=== PATIENT | female | born 1975 | race Caucasian/White ===

== ENCOUNTER 2019-08-31 21:28 | Emergency (ER) | payer SELFPAY ==
[2019-08-31] MEDS ORDERED: Sodium Chloride 0.9% 2.5 ML Syringe FLUSH PRN (22:24)
[2019-08-31] MEDS ORDERED: DEXTROSE 5% IV ONE ×2 (22:24)
[2019-08-31] MEDS ORDERED: VANCOMYCIN IV ONE ×2 (22:24)
[2019-08-31] MEDS ORDERED: WATER IV ONE ×2 (22:24)
[2019-08-31] MEDS ORDERED: Sodium Chloride 0.9% 1,000 ML IV ONE (22:24)
[2019-08-31] MEDS ORDERED: Sodium Chloride 0.9% 10 ML Syringe FLUSH PRN (22:24)
[2019-08-31] MEDS ORDERED: ceFAZolin 1 GM in Premix Bag 1 BAG IV ONE (22:26)
[2019-08-31 22:58] LABS: BLOOD UREA NITROGEN,BUN 7 mg/dL (7.0-18.0); CARBON DIOXIDE,CO2 25.5 mmol/L (21.0-32.0); CHLORIDE,CL 103 mmol/L (98-107); GLUCOSE RANDOM 108 mg/dL (74-106); POTASSIUM,K 3.6 mmol/L (3.5-5.1); SODIUM,NA 138 mmol/L (136-145)
--- NOTE | 2019-08-31 23:04 | CR ---
Indication: Cat bite, septic, eval for foreign body Technique: Three views of the left wrist Comparison: None Findings: There is no fracture or dislocation. There is no radiopaque foreign body. Advanced degenerative changes are noted at the intercarpal and radiocarpal joints. Impression: No radiopaque foreign body. Dictated by Leena Bustos MD @ Aug 31 2019 11:01PM Signed by Dr. Leena Bustos @ Aug 31 2019 11:04PM
[2019-08-31] MEDS ORDERED: Vancomycin 1 GM SDV ONE (23:11)
[2019-08-31] MEDS ORDERED: Vancomycin 1 GM AdvVial ONE (23:12)
--- NOTE | 2019-08-31 23:56 | EDM.PDOC ---
ED HPI GENERAL MEDICAL PROBLEM - General Chief Complaint: Bite:Animal, Insect Stated Complaint: INFECTION FROM CAT BITE Time Seen by Provider: 08/31/19 21:31 Source of Information: Reports: Patient History Limitations: Reports: No Limitations - History of Present Illness INITIAL COMMENTS - FREE TEXT/NARRATIVE: This patient is a 44-year-old female with a past medical history of rheumatoid arthritis (on Tocilizumab) presenting with an animal bite. Yesterday evening, she was bit on her left hand by her pet cat. Since then, she is experienced worsening pain, erythema, and swelling to the left hand and streaking up the left arm. No self treatment prior to arrival, no other complaints. left hand Pain Score (Numeric/FACES): 6 - Related Data Allergies Allergy/AdvReac Type Severity Reaction Status Date / Time No Known Allergies Allergy Verified 08/31/19 21:36 Home Meds: Home Meds Tocilizumab [Actemra] 162 mg SQ WEEKLY 08/31/19 [History] Past Medical History Musculoskeletal History: Reports: RA Social & Family History - Family History Family Medical History: Noncontributory - Tobacco Use Smoking Status *Q: Never Smoker - Caffeine Use Caffeine Use: Reports: Coffee - Recreational Drug Use Recreational Drug Use: No ED ROS GENERAL - Review of Systems Review Of Systems: See Below Constitutional: Denies: Fever, Chills HEENT: Reports: No Symptoms Respiratory: Reports: No Symptoms. Denies: Shortness of Breath Cardiovascular: Reports: No Symptoms. Denies: Chest Pain Endocrine: Reports: No Symptoms GI/Abdominal: Reports: No Symptoms. Denies: Nausea, Vomiting : Reports: No Symptoms Musculoskeletal: Reports: No Symptoms. Denies: Back Pain Skin: Reports: No Symptoms, Wound. Denies: Rash Neurological: Reports: No Symptoms. Denies: Headache Psychiatric: Reports: No Symptoms Hematologic/Lymphatic: Reports: No Symptoms Immunologic: Reports: No Symptoms ED EXAM, ANIMAL BITE - Physical Exam Exam: See Below Text/Narrative:: Vital signs reviewed. Nursing notes reviewed. Constitutional: Awake, alert, non-distressed Head: Normocephalic, atraumatic Eyes: EOMI, conjunctiva normal, no discharge, no scleral icterus Ears, Nose, Throat: External ears and ears normal, moist oral mucosa Cardiovascular: Tachycardic, 2+ radial pulse, capillary refill less than 2 seconds Pulmonary: normal work of breathing, no accessory muscle use Abdomen/GI: Soft, nontender, nondistended, no guarding or rigidity, no masses Musculoskeletal: No deformities Integumentary: Appropriate color for ethnicity, warm, dry, no pallor or jaundice , no rash. Puncture wounds noted to the radial aspect of the left hand over the thumb, at the site of her cat bites. Associated erythema, swelling, and induration consistent with cellulitis and there is lymphangitic streaking of the left upper extremity extending to the bicep Neurologic: Alert, answering questions appropriately, normal speech, no facial droop, moving all extremities well Psychiatric: Appropriate mood and affect, normal thought process Course - Vital Signs Text/Narrative:: On arrival patient was tachycardic with a heart rate of 115, afebrile, normal blood pressure. She appears nontoxic. IV access was established and labs were sent off. There was immediately concern for sepsis given her immunocompromise state with infectious source and tachycardic heart rate. Blood cultures were sent x2. CBC returned showing normal cell lines. Lactate is normal. INR and APTT are normal. Electrolytes are also normal. AST mildly elevated at 50. CRP and troponin are within normal limits. We obtained x-rays of the left hand to evaluate for any teeth or other retained foreign bodies, these were negative. Patient was given vancomycin and cefazolin IV out of concern for cellulitis. She was also given a tetanus immunization booster. I strongly recommended inpatient hospitalization. I am concerned that she is immunocompromised due to her RA medications and I think that she has cellulitis and it appears that the infection has been worsening over the past 24 hours. I advised her that she would need to be hospitalized and would require additional doses of IV antibiotics to ensure that her infection improved. Patient is wanting to leave the emergency department AGAINST MEDICAL ADVICE. She states that she has multiple animals at home that she must care for, some these animals have chronic medical conditions and need numerous medications and close attention. She has no friends or family here in the area that can assist her in caring for her animals so she is requesting to leave the emergency department AGAINST MEDICAL ADVICE. She appears to be mentally competent. She seems to be capable of making her own medical decisions. I counseled her that I strongly urged her to permit hospitalization and that by leaving the ED AGAINST MEDICAL ADVICE, she risks worsening of her condition or potentially . She voiced understanding of these risks but still wants to sign out AGAINST MEDICAL ADVICE. I will prescribe Augmentin as a stopgap measure ( through [facility]) and urged her to return to the emergency department immediately if she changed her mind or if any of her symptoms worsened. She voiced understanding and had no further questions. Subsequently discharged AGAINST MEDICAL ADVICE, registered nurse was in the room for the purposes of witnessing our discussion. Last Recorded V/S: Last Vital Signs Temp 36.7 C 08/31/19 21:38 Pulse 133 H 09/01/19 00:05 Resp 20 09/01/19 00:05 BP 135/86 09/01/19 00:05 Pulse Ox 99 09/01/19 00:05 - Orders/Labs/Meds Orders: Active Orders 24 hr Category Date Time Status Cardiac Monitoring [RC] CONTINUOUS Care 08/31/19 22:24 Active Overnight Pulse Oximetry [RC] Click to Edit Care 08/31/19 22:26 Active Vaccines to be Administered [RC] PER UNIT ROUTINE Care 09/01/19 00:15 Ordered CULTURE BLOOD [BC] Stat Lab 08/31/19 22:28 Received CULTURE BLOOD [BC] Stat Lab 08/31/19 22:38 Received Diphth,Pertuss(Acell),Tet Vac [Adacel] Med 09/01/19 00:15 Once 0.5 ml IM .ONCE ONE Sodium Chloride 0.9% [Saline Flush] Med 08/31/19 22:24 Active 10 ml FLUSH ASDIRECTED PRN Sodium Chloride 0.9% [Saline Flush] Med 08/31/19 22:24 Active 2.5 ml FLUSH ASDIRECTED PRN Vancomycin 1 gm Med 08/31/19 23:12 Active Sodium Chloride 0.9% [Normal Saline (AdvBag)] 250 ml IV ONETIME Blood Culture x2 Reflex Set [OM.PC] Stat Oth 08/31/19 22:24 Ordered Pulse Oximetry Continuous Monitoring [OM.PC] Routine Oth 08/31/19 22:24 Ordered Saline Lock Insert [OM.PC] Stat Oth 08/31/19 22:24 Ordered Severe Sepsis Onset Time [OM.PC] Stat Oth 08/31/19 22:24 Ordered Medication Orders Vancomycin HCl 1 gm/ Sodium (Chloride) 250 mls @ 166 mls/hr IV ONETIME ONE Stop: 09/01/19 00:42 Last Admin: 08/31/19 23:24 Dose: 166 mls/hr Sodium Chloride (Saline Flush) 10 ml FLUSH ASDIRECTED PRN PRN Reason: Keep Vein Open Last Admin: 08/31/19 23:01 Dose: 10 ml Sodium Chloride (Saline Flush) 2.5 ml FLUSH ASDIRECTED PRN PRN Reason: Keep Vein Open Last Admin: 08/31/19 23:01 Dose: 2.5 ml Labs: Laboratory Tests 08/31/19 08/31/19 08/31/19 Range/Units 22:28 22:28 22:28 WBC 4.27 (4.0-11.0) K/uL RBC 4.14 L (4.30-5.90) M/uL Hgb 13.9 (12.0-16.0) g/dL Hct 41.6 (36.0-46.0) % MCV 100.5 H (80.0-98.0) fL MCH 33.6 H (27.0-32.0) pg MCHC 33.4 (31.0-37.0) g/dL RDW Std Deviation 43.4 (28.0-62.0) fl RDW Coeff of Jayshree 12 (11.0-15.0) % Plt Count 155 (150-400) K/uL MPV 10.20 (7.40-12.00) fL Neut % (Auto) 73.1 (48.0-80.0) % Lymph % (Auto) 17.1 (16.0-40.0) % [place] % (Auto) 9.1 (0.0-15.0) % Eos % (Auto) 0.2 (0.0-7.0) % Baso % (Auto) 0.5 (0.0-1.5) % Neut # (Auto) 3.1 (1.4-5.7) K/uL Lymph # (Auto) 0.7 (0.6-2.4) K/uL [place] # (Auto) 0.4 (0.0-0.8) K/uL Eos # (Auto) 0.0 (0.0-0.7) K/uL Baso # (Auto) 0.0 (0.0-0.1) K/uL Nucleated RBC % 0.0 /100WBC Nucleated RBCs # 0 K/uL INR 1.01 APTT 24.5 (18.6-31.3) SEC Lactate 1.1 (0.20-2.00) mmol/L Sodium (136-145) mmol/L Potassium (3.5-5.1) mmol/L Chloride (98-107) mmol/L Carbon Dioxide (21.0-32.0) mmol/L BUN (7.0-18.0) mg/dL Creatinine (0.6-1.0) mg/dL Est Cr Clr Drug Dosing mL/min Estimated GFR (MDRD) ml/min Glucose (74-106) mg/dL Calcium (8.5-10.1) mg/dL Total Bilirubin (0.2-1.0) mg/dL AST (15-37) IU/L ALT (14-63) IU/L Alkaline Phosphatase (46-116) U/L Troponin I (0.000-0.056) ng/mL C-Reactive Protein (0.00-0.90) mg/dL Total Protein (6.4-8.2) g/dL Albumin (3.4-5.0) g/dL Globulin (2.6-4.0) g/dL Albumin/Globulin Ratio (0.9-1.6) 08/31/19 Range/Units 22:28 WBC (4.0-11.0) K/uL RBC (4.30-5.90) M/uL Hgb (12.0-16.0) g/dL Hct (36.0-46.0) % MCV (80.0-98.0) fL MCH (27.0-32.0) pg MCHC (31.0-37.0) g/dL RDW Std Deviation (28.0-62.0) fl RDW Coeff of Jayshree (11.0-15.0) % Plt Count (150-400) K/uL MPV (7.40-12.00) fL Neut % (Auto) (48.0-80.0) % Lymph % (Auto) (16.0-40.0) % [place] % (Auto) (0.0-15.0) % Eos % (Auto) (0.0-7.0) % Baso % (Auto) (0.0-1.5) % Neut # (Auto) (1.4-5.7) K/uL Lymph # (Auto) (0.6-2.4) K/uL [place] # (Auto) (0.0-0.8) K/uL Eos # (Auto) (0.0-0.7) K/uL Baso # (Auto) (0.0-0.1) K/uL Nucleated RBC % /100WBC Nucleated RBCs # K/uL INR APTT (18.6-31.3) SEC Lactate (0.20-2.00) mmol/L Sodium 138 (136-145) mmol/L Potassium 3.6 (3.5-5.1) mmol/L Chloride 103 (98-107) mmol/L Carbon Dioxide 25.5 (21.0-32.0) mmol/L BUN 7 (7.0-18.0) mg/dL Creatinine 0.9 (0.6-1.0) mg/dL Est Cr Clr Drug Dosing 65.31 mL/min Estimated GFR (MDRD) > 60.0 ml/min Glucose 108 H (74-106) mg/dL Calcium 8.2 L (8.5-10.1) mg/dL Total Bilirubin 0.9 (0.2-1.0) mg/dL AST 50 H (15-37) IU/L ALT 45 (14-63) IU/L Alkaline Phosphatase 71 (46-116) U/L Troponin I < 0.050 (0.000-0.056) ng/mL C-Reactive Protein <0.20 (0.00-0.90) mg/dL Total Protein 7.6 (6.4-8.2) g/dL Albumin 4.2 (3.4-5.0) g/dL Globulin 3.4 (2.6-4.0) g/dL Albumin/Globulin Ratio 1.2 (0.9-1.6) Meds: Medications Generic Name Dose Route Start Last Admin Trade Name Freq PRN Reason Stop Dose Admin Vancomycin HCl 1 gm/ Sodium 250 mls @ 166 mls/hr 08/31/19 23:12 08/31/19 23: 24 Chloride IV 09/01/19 00:42 166 mls/hr ONETIME ONE Administration Sodium Chloride 10 ml 05/22/20 22:24 08/31/19 23:01 Saline Flush FLUSH 10 ml ASDIRECTED PRN Administration Keep Vein Open Sodium Chloride 2.5 ml 08/31/19 22:24 08/31/19 23:01 Saline Flush FLUSH 2.5 ml ASDIRECTED PRN Administration Keep Vein Open Discontinued Medications Generic Name Dose Route Start Last Admin Trade Name Freq PRN Reason Stop Dose Admin Sodium Chloride 1,000 mls @ 1,000 mls/hr 08/31/19 22:24 08/31/19 22:59 Normal Saline IV 08/31/19 23:23 1,000 mls/hr .Bolus ONE Administration Vancomycin HCl 1,000 gm/ 250 mls @ 167 mls/hr 08/31/19 22:24 08/31/19 23:12 Dextrose/Water IV 08/31/19 23:53 Not Given ONETIME ONE Cefazolin Sodium/Dextrose 1 gm 50 mls @ 100 mls/hr 08/31/19 22:26 08/31/19 23 :00 / Premix IV 08/31/19 22:55 100 mls/hr ONETIME ONE Administration Vancomycin HCl Confirm 08/31/19 23:11 08/31/19 23:14 Vancomycin Administered 08/31/19 23:12 Not Given Dose 1 gm .ROUTE .STK-MED ONE Vancomycin HCl Confirm 08/31/19 23:12 08/31/19 23:14 Vancocin Administered 08/31/19 23:13 Not Given Dose 1 gm .ROUTE .STK-MED ONE Departure - Departure Time of Disposition: 00:21 Disposition: Against Medical Advice 07 Condition: Good, Fair Clinical Impression: Cat bite involving extremity, Cellulitis of left upper extremity, Immunocompromised state - Discharge Information *PRESCRIPTION DRUG MONITORING PROGRAM REVIEWED*: Not Applicable *COPY OF PRESCRIPTION DRUG MONITORING REPORT IN PATIENT SERGIO: Not Applicable Instructions: Cellulitis, Adult, Lymphangitis, Adult, Cellulitis, Adult, Easy- to-Read, Animal Bite, Adult Referrals: [facility] - Internal Medicine [Provider Group] - 1 Day Forms: ED Department Discharge Additional Instructions: You are choosing to sign out the emergency department AGAINST MEDICAL ADVICE. You understand but that by doing so, your infection could worsen you could potentially . I recommend that you return to the emergency department immediately if you change your mind or if your symptoms worsen. Please be sure to take your antibiotic medications as prescribed and finish the entire bottle. Return to the emergency department immediately if you are feeling worse or if you have any other concerns. The following information is given to patients seen in the emergency department who are being discharged to home. This information is to outline your options for follow-up care. We provide all patients seen in our emergency department with a follow-up referral. The need for follow-up, as well as the timing and circumstances, are variable depending upon the specifics of your emergency department visit. If you don't have a primary care physician on staff, we will provide you with a referral. We always advise you to contact your personal physician following an emergency department visit to inform them of the circumstance of the visit and for follow-up with them and/or the need for any referrals to a consulting specialist. The emergency department will also refer you to a specialist when appropriate. This referral assures that you have the opportunity for follow-up care with a specialist. All of these measure are taken in an effort to provide you with optimal care, which includes your follow-up. Under all circumstances we always encourage you to contact your private physician who remains a resource for coordinating your care. When calling for follow-up care, please make the office aware that this follow-up is from your recent emergency room visit. If for any reason you are refused follow-up, please contact the [facility] Emergency Department at and asked to speak to the emergency department charge nurse. Sepsis Event Note - Evaluation Sepsis Screening Result: No Definite Risk - Focused Exam Vital Signs: Vital Signs Temp Pulse Resp BP Pulse Ox 09/01/19 00:05 133 H 20 135/86 99 08/31/19 21:38 36.7 C 115 H 18 127/97 H 96 Date Exam was Performed: 09/01/19 Time Exam was Performed: 00:15 - My Orders Last 24 Hours: My Active Orders 08/31/19 22:24 Cardiac Monitoring [RC] CONTINUOUS Sodium Chloride 0.9% [Saline Flush] 10 ml FLUSH ASDIRECTED PRN Sodium Chloride 0.9% [Saline Flush] 2.5 ml FLUSH ASDIRECTED PRN Blood Culture x2 Reflex Set [OM.PC] Stat Pulse Oximetry Continuous Monitoring [OM.PC] Routine Saline Lock Insert [OM.PC] Stat Severe Sepsis Onset Time [OM.PC] Stat 08/31/19 22:26 Overnight Pulse Oximetry [RC] Click to Edit 08/31/19 22:28 CULTURE BLOOD [BC] Stat 08/31/19 22:38 CULTURE BLOOD [BC] Stat 08/31/19 23:12 Vancomycin 1 gm Sodium Chloride 0.9% [Normal Saline (AdvBag)] 250 ml IV ONETIME 09/01/19 00:15 Vaccines to be Administered [RC] PER UNIT ROUTINE Diphth,Pertuss(Acell),Tet Vac [Adacel] 0.5 ml IM .ONCE ONE - Assessment/Plan Last 24 Hours: My Active Orders 08/31/19 22:24 Cardiac Monitoring [RC] CONTINUOUS Sodium Chloride 0.9% [Saline Flush] 10 ml FLUSH ASDIRECTED PRN Sodium Chloride 0.9% [Saline Flush] 2.5 ml FLUSH ASDIRECTED PRN Blood Culture x2 Reflex Set [OM.PC] Stat Pulse Oximetry Continuous Monitoring [OM.PC] Routine Saline Lock Insert [OM.PC] Stat Severe Sepsis Onset Time [OM.PC] Stat 08/31/19 22:26 Overnight Pulse Oximetry [RC] Click to Edit 08/31/19 22:28 CULTURE BLOOD [BC] Stat 08/31/19 22:38 CULTURE BLOOD [BC] Stat 08/31/19 23:12 Vancomycin 1 gm Sodium Chloride 0.9% [Normal Saline (AdvBag)] 250 ml IV ONETIME 09/01/19 00:15 Vaccines to be Administered [RC] PER UNIT ROUTINE Diphth,Pertuss(Acell),Tet Vac [Adacel] 0.5 ml IM .ONCE ONE
[2019-09-01] MEDS ORDERED: Diphtheria,Pertussis(Acell),Tetanus Vaccine 0.5 ML Syringe IM ONE (00:15)
== END 2019-09-01 00:30 | disposition left against medical advice (07) ==
LOC: MW.ED 21:28
DX: S61.452A Open bite of left hand, initial encounter (principal); L03.114 Cellulitis of left upper limb; D89.9 Disorder involving the immune mechanism, unspecified; W55.01XA Bitten by cat, initial encounter
CPT/HCPCS: 36415; 73110; 80053; 83605; 84484; 85025; 85610; 85730; 86140; 87040; 96365; 96367; 99283; J0690; J3370; J7030; J7050